=== PATIENT | female | born 1930 | race Caucasian/White ===

== ENCOUNTER 2020-05-24 18:42 | Inpatient (IN) | payer MEDICARE ==
[~2020-05-24] VITALS: Ht 162.6 cm; Wt 62.6 kg
[2020-05-24 19:35] LABS: HEMOGLOBIN 12.1 gm/dl (12.3-15.3); RED BLOOD COUNT 3.88 M/UL (4.00-5.10); WHITE BLOOD COUNT 21.2 K/UL (4.5-11.0)
[2020-05-25 05:19] LABS: HEMOGLOBIN 10.4 gm/dl (12.3-15.3)
[2020-05-25 05:26] LABS: RED BLOOD COUNT 3.33 M/UL (4.00-5.10); WHITE BLOOD COUNT 15.4 K/UL (4.5-11.0)
[2020-05-25] MEDS ORDERED: XALATAN2.5 ML EYEBOTH (11:32)
[2020-05-25] MEDS ORDERED: PATADAY ONCE DAI5 ML EYEBOTH (11:35)
[2020-05-25] MEDS ORDERED: TIMOPTIC 0.5% OP5 ML OU (11:36)
[2020-05-25] MEDS ORDERED: AVAPRO150 MG PO (11:36)
[2020-05-25] MEDS ORDERED: XYZAL5 MG PO (11:37)
[2020-05-25] MEDS ORDERED: SINGULAIR10 MG PO (11:37)
[2020-05-25] MEDS ORDERED: CENTRUM SILVER1 EAC1 PO (13:01)
[2020-05-25] MEDS ORDERED: VITAMIN E400 UNIT PO (13:02)
[2020-05-25] MEDS ORDERED: VITAMIN C1000 MG PO (13:03)
[2020-05-25] MEDS ORDERED: FOLIC ACID0.8 MG PO (13:03)
[2020-05-25] MEDS ORDERED: ASPIRIN EC81 MG PO (13:04)
[2020-05-25] MEDS ORDERED: TYLENOL325 MG PO (13:04)
[2020-05-28 03:14] LABS: HEMOGLOBIN 10.7 gm/dl (12.3-15.3); RED BLOOD COUNT 3.46 M/UL (4.00-5.10); WHITE BLOOD COUNT 12.1 K/UL (4.5-11.0)
[2020-05-28 03:32] LABS: BUN/CREATININE RATIO 19 (0-10)
[2020-05-29 06:31] LABS: BUN/CREATININE RATIO 17 (0-10)
[2020-06-01] MEDS ORDERED: VALSARTAN80 MG PO (11:02)
[2020-06-01 11:29] LABS: HEMOGLOBIN 10.6 gm/dl (12.3-15.3); RED BLOOD COUNT 3.41 M/UL (4.00-5.10); WHITE BLOOD COUNT 11.7 K/UL (4.5-11.0)
[2020-06-01 11:47] LABS: BUN/CREATININE RATIO 14 (0-10)
--- NOTE | 2020-06-01 13:50 | NUR ---
RN CALLED REPORT TO ISAIAH SHAIKH AT [facility]. HE INSTRUCTED RN TO FAX DISCHARGE SUMMARY WHEN AVAILABLE. MACHINE STITCHER MADE AWARE. PATIENT TRANSPORTED TO PRIVATE VEHICLE WITH NIECE VIA WHEELCHAIR. PATIENT NOTED TO BE IN STABLE CONDITION. IV REMOVED. NO S/SX OF DISTRESS NOTED.
== END 2020-06-01 13:55 | DRG 872 ==
LOC: ER1 18:42 → MED SURG 4 21:44 → CDU 21:44 → MED SURG 4 05-25 17:23
PROVIDERS: Family Medicine; Internal Medicine; ADMIT Internal Medicine
DX: A41.59 Other Gram-negative sepsis (principal); N10 Acute pyelonephritis; M62.82 Rhabdomyolysis; N17.9 Acute kidney failure, unspecified; I10 Essential (primary) hypertension; J30.9 Allergic rhinitis, unspecified; Z20.822 Contact with and (suspected) exposure to COVID-19; E83.42 Hypomagnesemia; B96.1 Klebsiella pneumoniae [K. pneumoniae] as the cause of diseases classified elsewhere; Z88.5 Allergy status to narcotic agent
CPT/HCPCS: 0240U; 36415; 73502; 80048; 80053; 81001; 82550; 82553; 83605; 83690; 83735; 83874; 84484; 85025; 85027; 85610; 87040; 87077; 87086; 87186; 93005; 96374; 97110; 97116; 97116-GP-CQ; 97161; 97166; 97530; 97530-GP-CQ; 99285; J0696; J1650; J1885; J2405; J7030